=== PATIENT | male | born 1970 | race Hispanic/Latino ===

== ENCOUNTER 2016-08-22 07:55 | Emergency (ER) | payer BC ==
[~2016-08-22] VITALS: Ht 188 cm; Wt 117.0 kg
[2016-08-22] MEDS ORDERED: LOSA1TAB18 PO (08:09)
[2016-08-22] MEDS ORDERED: BUPR150T13 PO (08:09)
[2016-08-22] MEDS ORDERED: MONT10TA9 PO (08:09)
[2016-08-22] MEDS ORDERED: LIDOCAINE 1% VIAL ONE (08:18)
--- NOTE | 2016-08-22 08:38 | ER.PDOC ---
General Chief Complaint: Skin Rash/Abscess Stated Complaint: MALE Time seen by MD: 08:20 Source: patient Exam Limitations: no limitations History of Present Illness Initial Comments Pt developed perirectal abscess about 8 days ago, was given antibiotics and kenalog by [employer], but got worse. Timing/Duration: 1 week Severity: severe Location: perirectal Quality: painful Identified Cause: no Home Meds Reported Medications Montelukast Sodium (MONTELUKAST SODIUM) 10 Mg Tablet, 1 TAB PO DAILY, #30 TAB 5 Refills 08/22/16 Losartan/Hydrochlorothiazide (LOSARTAN-HCTZ 100-12.5 MG TAB) 1 Each Tablet, 1 TAB PO DAILY, #30 TAB 5 Refills 08/22/16 Bupropion Hcl (BUPROPION HCL SR) 150 Mg Tablet.er, 1 TAB PO BID, #60 TAB 5 Refills 08/22/16 Past Medical History Surgical History: cholecystectomy, colectomy Social History Smoking: less than 1 pack/day Alcohol Use: occassionally Drug Use: none Constitutional: see HPI EENTM: see HPI Respiratory: see HPI Cardiovascular: see HPI Gastrointestinal: see HPI Genitourinary: see HPI Musculoskeletal: see HPI Skin: see HPI Psychiatric/Neurological: see HPI Endocrine: see HPI Hematologic/Lymphatic: see HPI Physical Exam General Appearance: alert, no distress Skin: warm/dry, nml color Location: other (perirectal) Character: symmetric, erythematous With: warmth, tenderness, swelling, induration, inflammation Extremities: non-tender, nml ROM, no edema EENT: eyes nml inspection, lips/gums nml, pharynx nml Neck: trachea midline, no swelling Respiratory: no resp. distress, breath sounds nml CVS: reg. rate & rhythm, heart sounds nml Abdomen: non-tender, no organomegaly Rectal: non-tender NEURO/PSYCH: oriented x 3, CN's nml as tested, motor nml, sensation nml, mood/ affect nml Incision and Drainage Incision and Drainage : Site: left perirectal area Blade Size: 11 I & D Procedure: betadine prep, sterile drapes applied, irrigated cavity w/ saline Departure Time of Disposition: 06:37 Disposition: 01 HOME, SELF-CARE Impression: Primary Impression: Soft tissue infection Additional Impressions: Cellulitis Abscess Condition: Stable Patient Instructions: Abscess, [id number] Referrals: PCP,UNKNOWN (PCP) PRIMARY CARE PROVIDER REBECCA SMITH MD August 22, 2016 08:38
[2016-08-22 08:43] VITALS: BP 169/111
== END 2016-08-22 08:42 | disposition home or self-care (01) ==
LOC: ER 07:55
DX: K61.1 Rectal abscess (principal); F17.200 Nicotine dependence, unspecified, uncomplicated; Z79.899 Other long term (current) drug therapy
CPT/HCPCS: 46040; 99284; J2001; 10060; 99283

== ENCOUNTER → 2023-12-11 | Outpatient (CLI) | payer BC ==
[~2023-12-11] MED LIST: BUPR150T26 PO; LOSA1TAB25 PO; MONT-38 PO
== END | disposition home or self-care (01) ==
LOC: RAD 15:20
PROVIDERS: ATTEND Nurse Practitioner Family
DX: S52.592A Other fractures of lower end of left radius, initial encounter for closed fracture (principal); M25.532 Pain in left wrist; X58.XXXA Exposure to other specified factors, initial encounter; Y93.89 Activity, other specified; Y92.89 Other specified places as the place of occurrence of the external cause; Y99.8 Other external cause status
CPT/HCPCS: 73110-LT